=== PATIENT | male | born 1965 ===

== ENCOUNTER 2018-07-12 08:18 | Day surgery (SDC) | payer OTHER ==
[~2018-07-12 08:18] MED LIST: CLONAZEPAM2 MG PO; RESTORIL30 M1 PO; SEROQUEL XR400 MG PO
[2018-07-12] MEDS ORDERED: DUI500 PO (12:37)
[2018-07-12] MEDS ORDERED: TRAM1TAB98 PO (12:37)
== END 2018-07-12 16:40 | disposition home or self-care (01) ==
LOC: CIR.AMB 08:18
DX: M23.352 Other meniscus derangements, posterior horn of lateral meniscus, left knee (principal); M23.342 Other meniscus derangements, anterior horn of lateral meniscus, left knee; M65.862 Other synovitis and tenosynovitis, left lower leg